=== PATIENT | female | born 1955 | race African-American/Black ===

== ENCOUNTER → 2020-05-26 | Outpatient (CLI) | payer BC ==
[~2020-05-26] MED LIST: ASPI-1497 PO; ATOR40TA70 PO; CALC0.253 PO; FURO20TA4 PO; LIRA0.6P2 SQ; LOSA25TA26 PO; PANT20TA3 PO; PIOG15TA68 PO
== END | disposition home or self-care (01) ==
LOC: LAB 09:10
PROVIDERS: ATTEND Surgery
DX: Z01.812 Encounter for preprocedural laboratory examination (principal); Z20.828 Contact with and (suspected) exposure to other viral communicable diseases; C50.112 Malignant neoplasm of central portion of left female breast
CPT/HCPCS: C9803; U0003

== ENCOUNTER → 2020-05-28 | Day surgery (SDC) | payer BC ==
[~2020-05-28] MED LIST changes: +LIDOCAINE HCL 1% 20ML VIAL (Pyxis) INJ ONE; +SODIUM BICARBONATE 4% (2.4MEQ) 5ML VIAL IV ONE
== END | disposition home or self-care (01) ==
LOC: RAD 13:01
PROVIDERS: ATTEND Surgery
DX: C50.912 Malignant neoplasm of unspecified site of left female breast (principal); R92.8 Other abnormal and inconclusive findings on diagnostic imaging of breast; Z79.82 Long term (current) use of aspirin; Z79.899 Other long term (current) drug therapy; Z98.890 Other specified postprocedural states
CPT/HCPCS: 19281; J3490

== ENCOUNTER 2020-05-29 06:28 | Day surgery (SDC) | payer BC ==
[~2020-05-29] VITALS: Ht 160 cm; Wt 76.2 kg
[~2020-05-29 06:28] MED LIST changes: -CEFAZOLIN SODIUM 1000MG/VIAL ONE; -DEXAMETHASONE 4MG/ML 1ML VIAL ONE; -EPHEDRINE SULFATE 50MG/ML VIAL ONE; -ETHYL CHLORIDE CAN TOP ONE; -FENTANYL CITRATE/PF 50MCG/ML 2ML VIAL ONE; -LABETALOL HCL 5MG/ML VIAL 20ML IV ONE; -LIDOCAINE HCL/PF 1% 10 MG/ML 5ML VIAL ONE; -MIDAZOLAM HCL 2 MG/2 ML VIAL ONE; -ONDANSETRON HCL 4MG/2ML INJ ONE; -PROPOFOL 200MG/20ML VIAL IV ONE; -ROCURONIUM BROMIDE 10MG/ML VIAL 5ML IV ONE; -SODIUM CHLORIDE 0.9% 10ML VIAL ONE; -SUCCINYLCHOLINE CHLORIDE 200MG/10ML IV ONE
[2020-05-29] MEDS ORDERED: BACITRACIN 50,000 UNITS/VIAL ONE ×2 (06:44→06:45)
[2020-05-29] MEDS ORDERED: SKIN ADHESIVE 0.7 GM EA TOP ONE (06:44)
[2020-05-29] MEDS ORDERED: METHYLENE BLUE 50 MG/10 ML AMP IV ONE (06:44)
[2020-05-29] MEDS ORDERED: GENTAMICIN SULF 40MG/ML 2ML VIAL ONE (06:44)
[2020-05-29] MEDS ORDERED: HYDROMORPHONE HCL/PF 2MG/ML CPJ IV PRN (12:00)
[2020-05-29] MEDS ORDERED: HYDRALAZINE 20MG/ML VIAL IV ONE (12:15)
== END 2020-05-29 14:15 | disposition home or self-care (01) ==
LOC: OR 06:28
PROVIDERS: ATTEND Surgery
DX: C50.112 Malignant neoplasm of central portion of left female breast (principal); E11.9 Type 2 diabetes mellitus without complications; N15.8 Other specified renal tubulo-interstitial diseases; E78.00 Pure hypercholesterolemia, unspecified; I10 Essential (primary) hypertension; Z79.899 Other long term (current) drug therapy; Z98.890 Other specified postprocedural states; Z79.82 Long term (current) use of aspirin
CPT/HCPCS: 19301; 19357; 38525; 38900; 76098; 88305; 88331; J3490; Q9968; J1580

== ENCOUNTER → 2020-05-29 | Outpatient (CLI) | payer BC ==
[~2020-05-29] VITALS: Ht 160 cm; Wt 76.2 kg
[~2020-05-29] MED LIST changes: +CEFAZOLIN SODIUM 1000MG/VIAL ONE; +DEXAMETHASONE 4MG/ML 1ML VIAL ONE; +EPHEDRINE SULFATE 50MG/ML VIAL ONE; +ETHYL CHLORIDE CAN TOP ONE; +FENTANYL CITRATE/PF 50MCG/ML 2ML VIAL ONE; +LABETALOL HCL 5MG/ML VIAL 20ML IV ONE; -LIDOCAINE HCL 1% 20ML VIAL (Pyxis) INJ ONE; +LIDOCAINE HCL/PF 1% 10 MG/ML 5ML VIAL ONE; +MIDAZOLAM HCL 2 MG/2 ML VIAL ONE; +ONDANSETRON HCL 4MG/2ML INJ ONE; +PROPOFOL 200MG/20ML VIAL IV ONE; +ROCURONIUM BROMIDE 10MG/ML VIAL 5ML IV ONE; -SODIUM BICARBONATE 4% (2.4MEQ) 5ML VIAL IV ONE; +SODIUM CHLORIDE 0.9% 10ML VIAL ONE; +SUCCINYLCHOLINE CHLORIDE 200MG/10ML IV ONE
== END | disposition home or self-care (01) ==
LOC: NM 06:19
PROVIDERS: ATTEND Surgery
DX: C50.112 Malignant neoplasm of central portion of left female breast (principal); I12.9 Hypertensive chronic kidney disease with stage 1 through stage 4 chronic kidney disease, or unspecified chronic kidney disease; E11.22 Type 2 diabetes mellitus with diabetic chronic kidney disease; N18.4 Chronic kidney disease, stage 4 (severe); E11.65 Type 2 diabetes mellitus with hyperglycemia; E78.2 Mixed hyperlipidemia; K21.9 Gastro-esophageal reflux disease without esophagitis; E66.3 Overweight; Z72.89 Other problems related to lifestyle; Z79.84 Long term (current) use of oral hypoglycemic drugs; Z79.899 Other long term (current) drug therapy; Z79.82 Long term (current) use of aspirin; Z68.29 Body mass index [BMI] 29.0-29.9, adult; Z98.890 Other specified postprocedural states
CPT/HCPCS: 78195; 82962; A4216; A9541; J0330; J0690; J1100; J2250; J2405; J2704; J3010; J3490